=== PATIENT | male | born 1955 | race Caucasian/White ===

== ENCOUNTER 2018-06-20 06:55 | Day surgery (SDC) | payer OTHER ==
[~2018-06-20] VITALS: Ht 175.3 cm; Wt 119.3 kg
[~2018-06-20 06:55] MED LIST: FENOFIBRATE160 MG PO; LISINOPRIL-HCT1 EAC1 PO; NAFTIFINE HCL45 GM; SIMVASTATIN20 MG PO
--- NOTE | 2018-06-20 11:29 | NUR ---
PT SEEMED ALERT, ORIENTED AND SUPPORTED BY FRIEND KALPANA. PT SEEMED RELAXED, INFORMED AND HAD FEW QUESTIONS. PT DID REQUEST PRAYER. WILL FOLLOW NEEDED
--- NOTE | 2018-06-20 16:04 | NUR ---
06/20/18 1604 Leny Peacock 7829 PT ARRIVED IN PACU WITH ORAL AIRWAY IN PLACE. NON RESPONSIVE TO VERBAL/TACTILE STIMULI. FRANCINE DRAIN IN BACK AND TAPED TO L SIDE OF ABD.
[2018-06-20] MEDS ORDERED: IBUPROFEN600 MG PO (16:12)
[2018-06-20] MEDS ORDERED: OXYCODON-ACETA1 EAC2 PO (16:12)
[2018-06-20] MEDS ORDERED: MAPAP325 MG PO (16:12)
--- NOTE | 2018-06-20 18:30 | NUR ---
PT TO FLOOR VIA STRETCHER WITH ADRI JOEL. PT NOT ABLE TO TRANSFER SELF SO MOVED ON SHEETS TO NEW BED. PT THEN WOKE UP A LITTLE AND IS REPETITIVLY REPEATING A FEW SENTENCES. VS STABLE. 1.5 L NC.
--- NOTE | 2018-06-20 18:47 | NUR ---
PT BLADDER SCANNED FOR 161ML. WISAM STATED THAT HE WAS STRAIGHT CATHED DURING PROCEDURE BUT DOESN'T KNOW WHAT TIME.
--- NOTE | 2018-06-20 19:10 | NUR ---
PT RESTING IN BED, EYES CLOSED BUT ALERT TO VOICE. ASSESSMENT COMPLETED. CALL LIGHT AND H20 IN REACH AND PT DENIES SOB OR PAIN.
--- NOTE | 2018-06-20 23:00 | NUR ---
PT RESTING IN BED, RESPIRATIONS EVEN AND UNLABORED, CALL LIGHT IN REACH. ASSESSMENT COMPLETED. NO NEEDS VOICED.
--- NOTE | 2018-06-21 01:04 | NUR ---
PT RESTING ON LEFT LATERAL SIDE, EYES CLOSED AND RR 16, SATTING 96% ON 1.5LPNC. CALL LIGHT AND H20 WITHIN REACH. PT APPEARS TO BE SLEEPING COMFORTABLY.
--- NOTE | 2018-06-21 01:57 | NUR ---
PT RESTING IN BED ALERT TO VOICE, ASSESSMENT COMPLETED. CALL LIGHT AND H20 IN REACH. PT DENIES PAIN/SOB NO NEEDS VOICED.
--- NOTE | 2018-06-21 06:00 | NUR ---
PT ALERT AND ORIENTED X4, UP WATCHING TV. ASSESSMENT PERFORMED. CALL LIGHT IN REACH. NO NEEDS VOICED.
--- NOTE | 2018-06-21 06:05 | NUR ---
IN TO SEE PT, PT ALERT AND ORIENTED X4, STATES "I',M FEELING A WHOLE LOT BETTER AND I THINK I'LL FEEL EVEN BETTER AFTER I GET SOME BREAKFAST IN ME" PT TO BE ASSISTED WITH ORDERING BREAKFAST. PT ASSISTED UP TO BEDSIDE TO VOID. PT DENIES FURHTER NEEDS/REQUESTS. CALL LIGHT AND H20 IN REACH.
--- NOTE | 2018-06-21 06:21 | NUR ---
IN TO SEE PT. PT STATES HE HAS PLACED HIS ORDER FOR BREAKFAST. NEW BAG OF L RHUNG AND INFUSING AT 85MLS/HR. CALL LIGHT AND H20 IN REACH, NO NEEDS VOICED.
--- NOTE | 2018-06-21 08:00 | NUR ---
MORNING MEDICATION GIVEN. DRAINAGE EDUCATION PROVIDED. PATIENT ABLE TO DRAIN FRANCINE DRAIN. FLOW SHEET TO ROOM. PATIENT ASKING QUESTIONS AND DOING WELL NEW INFORMATION.
--- NOTE | 2018-06-21 09:30 | NUR ---
PHARMACY IN ROOM GOING OVER DISCHARGE EDUCATION AND NEW MEDICATIONS.
--- NOTE | 2018-06-21 09:42 | NUR ---
I&O'S TAKEN AND DOCUMENTED. PT STATES HIS WAS TOLD BY HIS MD THAT HE IS GOING HOME SO HE DOES NOT WANT A SHOWER. INFORMED PT TO CALL IF HE CHANGES HIS MIND BEFORE HE LEAVES. FRESH WATER GIVEN. CALL LIGHT IS IN REACH.
--- NOTE | 2018-06-22 18:57 | OR ---
[facility] [address] [place], [place] [address] Signed DATE OF OPERATION: 06/20/2018 SURGEON: Teresa Siegel MD PREOPERATIVE DIAGNOSES: 1. 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 2. History of B-cell lymphoma. POSTOPERATIVE DIAGNOSES: 1. 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 2. History of B-cell lymphoma. 3. Bilateral axillary sentinel lymph node uptake. Frozen pathology right axillary sentinel lymph node negative for metastatic disease. Left side unable to freeze due to fat content of sentinel lymph nodes. PROCEDURE: 1. Injection of methylene blue for sentinel lymph node identification posterior thorax. 2. Wide excision of initial malignant melanoma lesion in mid posterior thorax 2 cm margins. 3. Rotational flap for advanced closure of wound, (superiorly based right side). 4. Right axillary sentinel lymph node biopsies. 5. Left axillary sentinel lymph node biopsies. ANESTHESIA: General endotracheal, Teresa Espinoza CRNA followed by Kalin Mary CRNA. DRAIN: 7 mm Joe. INDICATION: This 63-year-old white man is a patient of Dr. Huffman, and Julián Bashir. He has been under treatment by Dr. Huffman for lymphocytic leukemia and lymphoma in the past. He was noted to have a pigmented lesion in the posterior thorax exactly in the middle on the upper aspect. Wide excision was undertaken by me in the office setting, which confirmed a nodular, ulcerated, malignant melanoma with no evidence of lymphovascular invasion. It was 2.55 mm in thickness and considered Asif level 4. He has no clinical evidence of metastatic disease. Electronically Signed By: TERESA SIEGEL MD 06/22/18 1857 PATIENT NAME: JEFFY DURAN OPERATIVE REPORT DATE OF : 57 REPORT #: [id number] PHYSICIAN: TREESA SIEGEL MD PCP: JULIÁN BASHIR REPORT IS CONFIDENTIAL AND NOT TO BE RELEASED WITHOUT AUTHORIZATION [facility] [address] [place], [place] [address] Signed He has been offered therapy to include re-excision of the excision site to include at least a 2 cm margin and closure by whatever means probably rotational flap, as well as sentinel lymph node biopsies and lymphadenectomy if positive. Given the location of the lesion, ambiguous drainage basin is acknowledged and prior to operation, it was uncertain just where sentinel lymph node biopsies would be undertaken. He understands the risks of all of these procedures including, but not limited to, bleeding, infection, cosmetic deformity, flap failure, possible need for additional surgical, or medical therapy, including lymphadenectomy, as well as the possibility of recurrence. Understanding all this, he wished to proceed. FINDINGS: Radiographic sentinel lymph node identification was in both left and right axilla. There was no sign of neck, or groin sentinel lymph node uptake. The index lesion had the sutures in it from the original excision. Measured margins from the central portion of the scar were 2 cm making the excision size 4 cm in total. Optimal closure was provided by rotational flap superiorly based to the right of the midline. Axillary lymph node uptake ultimately was noted on each side and therefore sentinel lymph node biopsies were taken of both right and left axilla. Uptake of radionuclide and methylene blue dye was noted and frozen pathology in the right axilla showed initial sentinel lymph node to be negative for metastatic disease. Other axillary sentinel lymph nodes were considered too fat laden to affectively freeze and therefore, no further information was available on those. As regard to the left axilla, although his axillary sentinel lymph nodes were too fatty for freezing and therefore, no further information was noted in the left axilla. A drain was left in situ beneath the flap. Drains were not placed in the axilla. DESCRIPTION OF PROCEDURE: The patient was received from Radiology suite. I reviewed the nuclear medicine images with Dr. Lily Solorio showing bilateral axillary sentinel lymph node uptake. On that basis, bilateral sentinel lymph nodes would be needed. The patient was taken to the operating room, given a general endotracheal anesthetic. Preoperative antibiotic Ancef was given. Sequential compression device stockings used and heparin subcutaneously administered. After satisfactory anesthesia, the patient was carefully placed in a prone jackknife position with careful padding of pressure points. Posterior thorax lesion was in the interscapular area essentially in the mid posterior thorax. 1 mL of methylene blue dye 50% concentrated from usual was injected around the Electronically Signed By: TERESA SIEGEL MD 06/22/18 6079 PATIENT NAME: JEFFY DURAN OPERATIVE REPORT DATE OF : 57 REPORT #: [id number] PHYSICIAN: TERESA SIEGEL MD PCP: JULIÁN BASHIR REPORT IS CONFIDENTIAL AND NOT TO BE RELEASED WITHOUT AUTHORIZATION [address] [address] Signed incision site for sentinel lymph node identification. The posterior thorax was clipped and prepared with a chlorhexidine solution and draped sterilely. Measurement from the incision itself 2 cm throughout was undertaken making the excision size at least 4 cm from the central portion of the previously excised tissue. This incision was made after Marcaine and carried through the dermis with electrocautery and through the deep subcutaneous tissue to the posterior thorax fascia. Undermining was undertaken on the right side. The lesion appeared to be centered just to the left of the midline. Elevated flaps bilaterally would allow for some closure, but with considerable amount of tension and deformity, and therefore rotational flap was deemed most appropriate for closure. A superiorly based flap was chosen. An excision was made with a #15 blade and dissection carried through the dermis with electrocautery, as well as subcutaneous tissue. The flap rotated from a lateral to medial position. The edges not associated with rotational flap itself were freed with electrocautery to allow for laxity and closure. The flap was secured throughout its length with interrupted 2-0 Vicryl in deep dermal layer and a running 4-0 nylon for the skin. Complete and good vascularity of the flap was noted, and excellent cosmetic result was noted. Prior to complete closure, a 7 mm flat Joe drain was placed beneath the flap emanated inferiorly from a separate stab incision. It was secured with nylon suture. A Mepilex silver sponge dressing was applied as was an OpSite. The patient was then carefully transferred to another operating table to allow for operation in the supine position. Both axillae were clipped and prepared with chlorhexidine solution and draped sterilely. Using the C Trak radiation probe the right axilla was interrogated showing strong uptake, and an incision made over that site. A transverse incision was made, which was reasonably small, and dissection carried through the subcutaneous tissue with electrocautery, and blunt dissection. Using [employer]-White[employer] retractors for exposure. Interrogation of the axilla was undertaken. Initially it was rather difficult to find any pigmented lymph node. Strong uptake was noted, but ambiguity as to its location was considered given the posterior thorax with the initial injection site. Ultimately, a complex of lymph nodes with avid uptake of radionuclide were noted. These were excised and hemoclips applied to the lymphatic pedicles. Strong uptake was noted, and sentinel lymph node #1 was sent for frozen pathology. Additional dissection showed a larger complex of lymph nodes with uptake of blue dye and with radionuclide. These nodes appeared to be somewhat fatty replaced, but they were excised nevertheless, and passed for frozen pathology. There was no further great uptake into the right axilla. The wound was then packed with gauze. By this point, initial frozen pathology report for Electronically Signed By: TERESA SIEGEL MD 06/22/18 1857 PATIENT NAME: JEFFY DURAN OPERATIVE REPORT DATE OF : 57 REPORT #: [id number] PHYSICIAN: TERESA SIEGEL MD PCP: JULIÁN BASHIR REPORT IS CONFIDENTIAL AND NOT TO BE RELEASED WITHOUT AUTHORIZATION [facility] [address] [place] [address] Signed sentinel lymph node #1 showed no sign of metastatic disease, but the other sentinel lymph nodes, which were clearly marked and identified (four in total) were all considered too fatty for freezing and therefore, no further information was available to them, though almost certainly benign based on those findings. Attention was turned to the left axilla. With similar technique, the area of maximal uptake was noted. A transverse incision made and dissection carried through the dermis with electrocautery and blunt dissection undertaken. Again with a C-Trak probe interrogation of the axilla, ultimately identified avid uptake of complex of lymph nodes which were "hot." These were excised and marked. Additional dissection showed a large left axillary lymph node with avid uptake of blue dye, as well as radionuclide and it too was excised. It was at least 2 cm in size. The pathologist then reported that all the left axillary lymph nodes were too fatty for frozen examination in any reliable way, and no further effort was made for frozen pathology. Irrigation was undertaken in the left axilla. There was no untoward bleeding. Clips have been applied as necessary. The wound was closed with interrupted 2-0 Vicryl in deep layer and running subcuticular 3-0 Vicryl for the skin. Steri-Strips were applied. Attention was turned to the right axilla, which was similarly inspected, and found to be hemostatic. The wound was closed in a similar way with interrupted 2-0 Vicryl in deep subcutaneous tissue and running subcuticular 3-0 Vicryl for the skin. Steri-Strips were applied as was a Mepilex silver sponge dressing and an OpSite. As the operation was rather prolonged and complicated and difficult, an in and out catheter was done to avoid urinary retention. He was ultimately extubated and transported to recovery room in good condition having suffered no known complications. Sponge, needle, and instrument counts reported as correct x3. MD SANDOVAL Castro/VERONICAL /[id number] cc: MD Romina Flores MD Electronically Signed By: TERESA SIEGEL MD 06/22/18 1857 PATIENT NAME: JEFFY DURAN OPERATIVE REPORT DATE OF : 57 REPORT #: [id number] PHYSICIAN: TERESA SIEGEL MD PCP: JULIÁN BASHIR REPORT IS CONFIDENTIAL AND NOT TO BE RELEASED WITHOUT AUTHORIZATION [facility] [address] [place] [address] Signed Copies: ILANA HUFFMAN MD, ERICA MD ~ Electronically Signed By: TERESA SIEGEL MD 06/22/18 1857 PATIENT NAME: JEFFY DURAN OPERATIVE REPORT DATE OF : 57 REPORT #: [id number] PHYSICIAN: TERESA SIEGEL MD PCP: JULIÁN BASHIR REPORT IS CONFIDENTIAL AND NOT TO BE RELEASED WITHOUT AUTHORIZATION
== END 2018-06-21 09:55 | disposition home or self-care (01) ==
LOC: DS 06:55 → OPS 06:55 → EDSTATUS 08:00 → NUC 08:00 → MS 18:19 → OPS 06-21 09:55
PROVIDERS: Surgery
PROC: 07B60ZX Excision of Left Axillary Lymphatic, Open Approach, Diagnostic (ICD-10-PCS; 2018-06-20)
PROC: 07B50ZX Excision of Right Axillary Lymphatic, Open Approach, Diagnostic (ICD-10-PCS; 2018-06-20)
PROC: 0JX70ZB Transfer Back Subcutaneous Tissue and Fascia with Skin and Subcutaneous Tissue, Open Approach (ICD-10-PCS; principal; 2018-06-20 09:00)
PROC: 0JB70ZZ Excision of Back Subcutaneous Tissue and Fascia, Open Approach (ICD-10-PCS; 2018-06-20 09:00)
DX: C43.59 Malignant melanoma of other part of trunk (principal); C77.3 Secondary and unspecified malignant neoplasm of axilla and upper limb lymph nodes; I10 Essential (primary) hypertension; G89.29 Other chronic pain; C91.10 Chronic lymphocytic leukemia of B-cell type not having achieved remission; E66.01 Morbid (severe) obesity due to excess calories; Z68.38 Body mass index [BMI] 38.0-38.9, adult; Z85.46 Personal history of malignant neoplasm of prostate; Z79.891 Long term (current) use of opiate analgesic; Z79.899 Other long term (current) drug therapy
CPT/HCPCS: 00400; 78195; 94762; A9541; J0330; J0690; J1100; J1644; J1885; J2250; J2370; J2405; J2704; J2765; J3010; J7120

== ENCOUNTER 2023-04-19 07:18 | Day surgery (SDC) | payer MEDICARE ==
[2023-04-18 09:12] VITALS: BP 139/82
--- NOTE | 2023-04-18 10:55 | NUR ---
RECEIVED CALL FROM LAB REGARDING THIS PT LAB RESULTS. WBC 79.7. PHONE CALL TO DR SIEGEL OFFICE AND THEY WILL TALK WITH HIM. DR SIEGEL OFFICE CALLED BACK TO SAY THAT LUISA WAS TALKING WITH DR RODRIGUEZ REGARDING PT.
[~2023-04-19] VITALS: Ht 175.3 cm; Wt 109.1 kg
[~2023-04-19 07:18] MED LIST changes: +BAYER CHEWABLE81 MG PO; +GLIPIZIDE XL2.5 MG PO; +IBUPROFEN600 MG PO; +LISINOPRIL20 MG PO; +LORAZEPAM1 MG PO; +MAPAP325 MG PO; +OXYCODON-ACETA1 EAC2 PO; +TOPROL XL25 MG PO
[2023-04-19 07:46] VITALS: BP 149/72
--- NOTE | 2023-04-19 09:18 | NUR ---
IN ROOM FOR HEPARIN ADMIN, VERIFIED OK W/ANTHONY (SEE EMAR). PT TOLERATED WELL. IV SITE WNL, FLUIDS INFUSING DIRECTED. SCD'S IN PLACE. ANTHONY AND ROBBIN PEREZ HAVE VISITED WITH PT PER PT. PT STATES NO FURTHER QUESTIONS OR NEEDS AT THIS TIME. CALL LIGHT WITHIN REACH.
--- NOTE | 2023-04-19 10:14 | NUR ---
04/19/23 Cameron4 Soheila Cano 1009-PATIENT ARRIVED TO PACU ON 6L MASK RR EVEN. PATIENT REACTIVE TO VOICE OPEING EYES NOT FOLLOWING COMMANDS. SNORES WHEN SLEEPING. SCANT AMT OF SHADOWING ON DRESSING. SR. IVF INFUSING
[2023-04-19] MEDS ORDERED: ACETAMINOPHEN500 MG PO (10:27)
[2023-04-19] MEDS ORDERED: OXYCODON-ACETA1 EAC2 PO (10:27)
[2023-04-19] MEDS ORDERED: IBUPROFEN600 MG PO (10:27)
--- NOTE | 2023-04-19 10:40 | NUR ---
PT ARRIVES VIA STRETCHER TO ROOM FROM PACU UNIT. REPORT RECEIVED FROM RODRIGUE RUSH. PT REPORTS NO PAIN, NAUSEA, DIZZINESS, N/T, OR SOB AT THIS TIME. INCISION SITE HAS SCANT AMOUNT OF SS DRAINAGE, DRESSING IN PLACE. PT IS ALERT AND ORIENTED, ASKING QUESTIONS APPROPRIATELY. IV SITE WNL. PT IS ON RA W/O2 >90%, RESPIRATIONS ARE EVEN AND UNLABORED, NO SIGNS OF DISTRESS. ICE WATER, APPLESAUCE, AND CRACKERS PROVIDED. PT TOLERATING WITHOUT DIFFICULTY SWALLOWING. CALL LIGHT WITHIN REACH, NO FURTHER NEEDS AT THIS TIME.
[2023-04-19 10:44] VITALS: BP 150/77
--- NOTE | 2023-04-19 11:19 | NUR ---
IN PT ROOM FOR ROUNDING. PT HAS CONSUMED ALL OF CRACKERS, APPLESAUCE, AND CUP OF ICE WATER WITHOUT DIFFICULTY. PT STATES NO URGE TO VOID AT THIS TIME. CALL LIGHT WITHIN REACH, NO FURTHER NEEDS AT THIS TIME.
[2023-04-19 11:40] VITALS: BP 133/72
--- NOTE | 2023-04-19 11:40 | NUR ---
IN PT ROOM FOR ASSESSMENT AND VS. PT REPORTS NO PAIN, NAUSEA, DIZZINESS, SOB, OR N/T AT THIS TIME. VS TAKEN. PT TOLERATING RA W/O2 SATS >90% VIA PULSE OX AT THIS TIME, RESPIRATIONS ARE EVEN AND UNLABORED, NO SIGNS OF DISTRESS. SMALL AMOUNT OF SS SHADOWING ON DRESSING. DRESSING REINFORCED TOWARDS POSTERIOR END WITH OPSITE. PT ABLE TO STAND AT BEDSIDE AND REPORTS NO WEAKNESS/INSTABILITY, STANDBY ASSIST TO RESTROOM. 375 ML VOID INTO URINAL. PT NOW BACK IN ROOM GETTING DRESSED AT THIS TIME, CALL LIGHT WITHIN REACH. FRIEND ROB CALLED FOR RIDE.
--- NOTE | 2023-04-19 12:00 | NUR ---
IN PT ROOM FOR DISCHARGE EDUCATION, PT STATES VERBAL UNDERSTANDING AND STATES NO FURTHER QUESTIONS AT THIS TIME. EXTRA OPSITE PROVIDED FOR REINFORCEMENT, IF NECESSARY, FOR NEXT 48 HOUR PERIOD UNTIL IT CAN BE REMOVED, PER MD ORDER. IV SITE DC'ED, WNL, CATH TIP INTACT, GAUZE/COBAN IN PLACE. THIS RN ESCORTS PT OFF OF UNIT VIA WC TO PASSENGER SIDE OF FRIEND KALPANA'S VEHICLE. PT STATES NO FURTHER NEEDS AT THIS TIME. ALL BELONGINGS IN PT POSSESSION.
--- NOTE | 2023-04-20 10:23 | OR ---
[facility] [address] [place] [address] Signed DATE OF OPERATION: 04/19/2023 SURGEON: Teresa Siegel MD PREOPERATIVE DIAGNOSES: 1. Left supraclavicular posterior triangle lymph node enlargement. 2. History of malignant melanoma posterior thorax with bilateral axillary metastases. 3. Long-standing B-cell chronic lymphocytic leukemia. POSTOPERATIVE DIAGNOSES: 1. Left supraclavicular posterior triangle lymph node enlargement. 2. History of malignant melanoma posterior thorax with bilateral axillary metastases. 3. Long-standing B-cell chronic lymphocytic leukemia. PROCEDURE: Excision left supraclavicular posterior triangle lymph node. ANESTHESIA: General LMA, Bill Narvaez CRNA and local 5 mL of 0.25% Marcaine with epinephrine. INDICATION: This 67-year-old white man is referred by Dr. Huffman. He is a patient of MADHU Yang. In 2018, he underwent excision of posterior midline thoracic melanoma with rotational flap and right axillary sentinel lymph node biopsy and left axillary sentinel lymph node biopsy. A sentinel lymph node was positive in each side and both sides of the axilla underwent axillary dissection. His initial lesion was a Asif level 3 melanoma. Upon right axillary dissection, 29 lymph nodes were identified, all of them negative other than the sentinel node which was positive and was 0.7 mm in size. Left axillary content showed 30 lymph nodes, all negative for metastatic melanoma (other than the index sentinel node). 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 Huffman. Notably, his preoperative white cell count is 79.7. The patient is asymptomatic as regards to an enlarged lymph node in left supraclavicular area essentially in the posterior triangle. Concern was maintained by Dr. Huffman that this may represent recurrent melanoma rather than lymphoma manifestation of his B-cell small cell lymphocytic lymphoma. He is here for excisional biopsy for diagnosis. He understands the risk of bleeding, infection, cosmetic deformity, need for additional treatment and so forth and wished to proceed. FINDINGS: Electronically Signed By: TERESA SIEGEL MD 04/20/23 1023 PATIENT NAME: JEFFY DURAN OPERATIVE REPORT DATE OF : 57 REPORT #: [id number] PHYSICIAN: TERESA SIEGEL MD PCP: JULIÁN SALINAS PA-C REPORT IS CONFIDENTIAL AND NOT TO BE RELEASED WITHOUT AUTHORIZATION [facility] [address] [place], [place] [address] Signed The nodule was easily identified. It was somewhat marimar in color and uncertain as to its underlying histology. The lesion was sent fresh for pathology. DESCRIPTION OF PROCEDURE: The patient was brought to the operating room, given a general LMA type anesthetic. Preoperative antibiotic Ancef was given. His head was turned to the right, reverse Trendelenburg position was maintained right side down. The neck was prepared with chlorhexidine solution and draped sterilely. Preoperative antibiotics were given. The palpable lesion was cephalad to the left clavicle and the distal 2/3rd portion and essentially in the posterior triangle. On that basis, natural skin crease was incised somewhat cephalad to the lesion itself. Dissection was carried to the platysma with electrocautery. Using blunt and sharp dissection, the superficial neck fascia was more fully incised and dissection carried down to the lymph node itself. This was dissected free from the surrounding soft tissue with the hemostats ultimately identifying the lymph node which was somewhat dark bluish in color, but ultimately not black and not pale. This was dissected free from the surrounding soft tissue noting two lymph nodes actually one only 0.5 cm, the other 1.5 cm. Complete excision was undertaken. The vascular pedicles were secured with 3-0 Vicryl suture. Irrigation was undertaken and the wound was closed with interrupted 2-0 Vicryl. The skin was then closed with running subcuticular 3-0 Vicryl after injection of a few mL of 0.25% Marcaine with epinephrine. Steri-Strips were applied as was an Acticoat dressing. The patient was ultimately extubated and transferred to the recovery room in good condition having suffered no complications. Sponge, needle, and instrument counts were reported as correct x3. MD SANDOVAL Castro/VERONICAL /[id number] cc: MD Julián Flores PA Electronically Signed By: TERESA SIEGEL MD 04/20/23 1023 PATIENT NAME: JEFFY DURAN OPERATIVE REPORT DATE OF : 57 REPORT #: [id number] PHYSICIAN: TERESA SIEGEL MD PCP: JULIÁN SALINAS PA-C REPORT IS CONFIDENTIAL AND NOT TO BE RELEASED WITHOUT AUTHORIZATION [address] [address] Signed Copies: ILANA HUFFMAN MD ~ Electronically Signed By: TERESA SIEGEL MD 04/20/23 1023 PATIENT NAME: JEFFY DURAN OPERATIVE REPORT DATE OF : 57 REPORT #: [id number] PHYSICIAN: TERESA SIEGEL MD PCP: JULIÁN SALINAS PA-C REPORT IS CONFIDENTIAL AND NOT TO BE RELEASED WITHOUT AUTHORIZATION
--- NOTE | 2023-04-22 07:37 | PATH ---
[facility] [address] [facility] [address] [place], [place] [address] Signed SPECIMEN(S): A LEFT SUPRACLAVICULAR LYMPH NODE SPECIMEN SOURCE: A. 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 FINAL PATHOLOGIC DIAGNOSIS: Left supraclavicular lymph node: - Lymph node with a diffuse small B-cell proliferation. (see comment) - One lymph node, negative for metastatic melanoma (0/1). - A Melan A immunostain is negative for metastatic melanoma. - A SOX-10 immunostain is negative for metastatic melanoma. COMMENT: Flow cytometry is performed due to the diffuse proliferation of small lymphocytes; it shows the following: "FLOW CYTOMETRY ANALYSIS: FLOW DIFFERENTIAL (% Total CD45 vs. SSC gating): Lymphoid 88%; Debris 8%. Cell Count: 1.2 x 10*4/uL. Total Viability: 54% POPULATION ANALYSIS: LYMPHOID CELLS: The lymphocyte gate comprises 88% of total events and includes 17% T-cells with a CD4:CD8 ratio of 3.3:1 and normal morgan T-cell antigen expression. 79% of lymphocytes (54% of total events) are lambda-restricted B-cells expressing CD45 MOD, CD19 DIM, CD20 DIM, CD5 DIM, CD23 DIM, CD38 DIM (partial) and lambda DIM while negative for CD10. The remainders are NK-cells. PLASMA/PLASMACYTOID CELLS: A significant plasma cell population is not detected in the neg-dimCD45/CD38 screening gate. ANTIBODIES USED: KAPPA, LAMBDA, CD20, CD10, CD19, CD23, CD38, CD16, CD56, CD8, CD5, CD2, CD4, CD7, CD3, CD45, 7AAD: TOTAL ANTIBODIES USED: 17." Final characterization is pending hematopathologist review and the results will be reported in an addendum. EDUIN:DS:tyrell:C2NR MICROSCOPIC EXAMINATION: Histologic sections of all submitted blocks are examined by light microscopy. PATIENT NAME: JEFFY BLACKWOOD PATHOLOGY DATE OF : 57 REPORT #: [id number] PHYSICIAN: LISA LORENZO PCP: JULIÁN SALINAS PA-C REPORT IS CONFIDENTIAL AND NOT TO BE RELEASED WITHOUT AUTHORIZATION [facility] [address] [place], [place] [address] Signed These findings, together with the gross examination, support the pathologic diagnosis. Immunostains are performed with appropriate controls on block (A1) and show the following: - Melan A: Negative for metastatic melanoma. - SPX-10: Negative for metastatic melanoma. - CD3: Positive in small, scattered lymphocytes. - CD20: Positive in scattered small lymphocytes. JVR:[facility] GROSS DESCRIPTION: The specimen, labeled and designated "Dee Blackwood" and designated on the requisition "left supraclavicular lymph node," is received in saline and consists of a antunez-pink portion of soft tissue/possible lymph node (1.6 x 1.6 x 0.7 cm). A portion of tissue is placed in RPMI and held for lymphoma triage. The remainder of the specimen is bisected and submitted entirely in cassette A1. AC (under the direct supervision of a pathologist) The Gross Description was prepared using a voice recognition system. The report was reviewed for accuracy; however, sound-alike word errors, addition and/or deletions may occur. If there is any question about this report, please contact Client Services. ADDITIONAL NOTES: Immunohistochemical and/or in situ hybridization studies were performed on this case with the appropriate positive controls that react as expected. This test was developed and its performance characteristics determined by [facility]. It has not been cleared or approved by the U.S. Food and Drug Administration. The FDA has determined that such clearance or approval is not necessary. This test is used for clinical purposes. It should not be regarded as investigational or for research. [facility] is certified under the Clinical Laboratory Improvement Amendments of 1988 (CLIA) as qualified to perform high complexity clinical laboratory testing. This assay has not been validated for specimens that have been decalcified. PERFORMING LABORATORY: The technical component was performed by [facility], [address] [place] [id number] (CLIA# [id number]). Professional interpretation was performed by [facility], [address] [place] [id number] (CLIA#: [id number]). PATIENT NAME: JEFFY BLACKWOOD PATHOLOGY DATE OF : 57 REPORT #: [id number] PHYSICIAN: [employer] [facility] PCP: JULIÁN SALINAS PA-C REPORT IS CONFIDENTIAL AND NOT TO BE RELEASED WITHOUT AUTHORIZATION [facility] [address] [facility] [place] [address] Signed Diagnostician: Avi Brian MD Pathologist Electronically Signed 04/21/2023 Copies: ~ PATIENT NAME: JEFFY BLACKWOOD PATHOLOGY DATE OF : 57 REPORT #: [id number] PHYSICIAN: LISA LORENZO PCP: JULIÁN SALINAS PA-C REPORT IS CONFIDENTIAL AND NOT TO BE RELEASED WITHOUT AUTHORIZATION
== END 2023-04-19 12:05 | disposition home or self-care (01) ==
LOC: DS 07:18
PROVIDERS: ATTEND Surgery
PROC: 07B20ZZ Excision of Left Neck Lymphatic, Open Approach (ICD-10-PCS; principal; 2023-04-19 09:00)
DX: C91.10 Chronic lymphocytic leukemia of B-cell type not having achieved remission (principal); I10 Essential (primary) hypertension; C43.9 Malignant melanoma of skin, unspecified
CPT/HCPCS: 01610; 88184; 88185; 88305; 88341; 88342; J0330; J0690; J1100; J1644; J2001; J2405; J2704; J3010; J7121

== ENCOUNTER 2024-12-19 12:08 | Emergency (ER) | payer OTHER ==
[~2024-12-19] VITALS: Ht 175.3 cm; Wt 114.8 kg
[~2024-12-19 12:08] MED LIST changes: +ACETAMINOPHEN500 MG PO
[2024-12-19] MEDS ORDERED: CALQUENCE100 M1 PO (13:46)
[2024-12-19] MEDS ORDERED: ALLOPURINOL100 MG (13:47)
[2024-12-19] MEDS ORDERED: PIOGLITAZONE HC45 MG (13:47)
[2024-12-19 14:11] LABS: HEMATOCRIT 28.8 % (35.0-50.0); MCH 31.5 (27-36); MCHC 31.3 g/dl (30-36); MCV 100.5 fl (81-99); PLATELET COUNT 134 K/uL (140-440); RBC 2.86 M/ul (4.3-5.7); RDW 18.1 (10.5-15.0)
[2024-12-19 14:20] LABS: ALBUMIN 4.1 g/dL (3.4-5.0); ALBUMIN/GLOBULIN RATIO 1.64 (1.1-2.4); ANION GAP 12.1 (7-21); BILIRUBIN, TOTAL 0.7 ng/dL (0.2-1.0); BUN/CREATININE RATIO 20.39 (6.0-28.6); CALCIUM 9.9 mg/dL (8.5-10.1); CREATININE, SERUM 1.52 mg/dL (0.70-1.30); POTASSIUM 5.1 mmol/L (3.5-5.1); PROTEIN, TOTAL 6.6 g/dL (6.4-8.2)
[2024-12-19 14:32] LABS: LYMPHOCYTES, MANUAL DIFF 95; NEUTROPHILS, MANUAL DIFF 5
[2024-12-19 17:20] VITALS: BP 114/60
== END 2024-12-19 17:23 | disposition home or self-care (01) ==
LOC: ED 12:08
PROVIDERS: Internal Medicine
DX: R59.0 Localized enlarged lymph nodes (principal); N17.9 Acute kidney failure, unspecified; R60.0 Localized edema; E11.9 Type 2 diabetes mellitus without complications; I10 Essential (primary) hypertension; E78.5 Hyperlipidemia, unspecified; C95.90 Leukemia, unspecified not having achieved remission; Z88.8 Allergy status to other drugs, medicaments and biological substances; Z79.899 Other long term (current) drug therapy
CPT/HCPCS: 36415; 80053; 83880; 85025; 93970; 99284-25